=== PATIENT | male | born 1960 | race African-American/Black ===

== ENCOUNTER 2018-08-06 07:32 | Emergency (ER) | payer SELFPAY ==
[2018-08-06 08:40] LABS: Absolute Lymphocytes (CBC) 3.1 K/uL (0.7-4.9); Basophils % 0.9 % (0-1.3); Hematocrit 45.8 % (39.6-49.0); Lymphocytes % 37.4 % (15.3-44.8); MPV 7.9 fL (7.6-11.3); Monocytes % 10.8 % (3.3-12.3); RBC Red Blood Cell Count 5.06 M/uL (4.33-5.43)
[2018-08-06 08:42] LABS: Albumin 3.3 g/dL (3.4-5.0); Bilirubin Direct 0.1 mg/dL (0-0.2); Bilirubin Total 0.6 mg/dL (0.2-1.0); Potassium 4.2 mmol/L (3.5-5.1); Protein, Total 7.3 g/dL (6.4-8.2)
--- NOTE | 2018-08-06 09:26 | RAD REPORT ---
EXAM DESCRIPTION: CTAbdomen Pelvis W Contrast - 08/06/2018 9:07 am CLINICAL HISTORY: Abdominal pain. ABD PAIN COMPARISON: No comparisons TECHNIQUE: Biphasic CT imaging of the abdomen and pelvis was performed with 100 ml non-ionic IV cont rast. All CT scans are performed using dose optimization technique as appropriate and may include automated exposure control or mA/KV adjustment according to patient size. FINDINGS: The lung bases are clear. The liver, spleen, pancreas, adrenal glands and left kidney are within normal limits. 21 mm right daron al cyst is present. No bowel obstruction, free air, free fluid or abscess. Small fat containing umbilical hernia present. The appendix is normal. No evidence of significant lymphadenopathy. Prostate gland is mildly promin ent. Lower lumbar degenerative changes are present. IMPRESSION: No acute intra-abdominal or pelvic finding. Small fat containing umbilical hernia.
--- NOTE | 2018-08-06 10:16 | ER ---
Nurse's Notes [facility] Name: Wolfgang Ross Age: 57 yrs Sex: Male : 1960 Arrival Date: 08/06/2018 Time: 07:36 Bed 14 Private MD: Diagnosis: Abdominal and pelvic pain Presentation: 08/06 07:49 Presenting complaint: Patient states: I have a hernia and a knot on my side and it ls4 flares up at night. Transition of care: patient was not received from another setting of care. Onset of symptoms is unknown. Risk Assessment: Do you want to hurt yourself or someone else? Patient reports no desire to harm self or others. Initial Sepsis Screen: Does the patient meet any 2 criteria? No. Patient's initial sepsis screen is negative. Does the patient have a suspected source of infection? No. Patient's initial sepsis screen is negative. Care prior to arrival: None. 07:49 Method Of Arrival: Ambulatory ls4 07:49 Acuity: BREANNA 4 ls4 Triage Assessment: 07:52 General: Appears in no apparent distress. Behavior is calm, cooperative. Pain: ls4 Complains of pain in suprapubic area, right lower quadrant and left lower quadrant Pain does not radiate. Pain currently is 7 out of 10 on a pain scale. GI: Abdomen is non-distended, Bowel sounds present X 4 quads. Abd is soft and non tender. : No deficits noted. Derm: No deficits noted. Musculoskeletal: Circulation, motion, and sensation intact. Capillary refill < 3 seconds, Range of motion: intact in all extremities, Swelling absent. Historical: - Allergies: 10:28 No Known Allergies; ls4 - Home Meds: 07:52 None [Active]; ls4 - PMHx: 07:52 None; ls4 - PSHx: 07:52 None; ls4 - Immunization history:: Adult Immunizations unknown, Last tetanus immunization: unknown. - Social history:: Smoking status: Patient uses tobacco products, smokes one pack cigarettes per day. Patient uses alcohol, on a daily basis. street drugs, marijuana. - Ebola Screening: : Patient negative for fever greater than or equal to 101.5 degrees Fahrenheit, and additional compatible Ebola Virus Disease symptoms Patient denies exposure to infectious person Patient denies travel to an Ebola-affected area in the 21 days before illness onset No symptoms or risks identified at this time. Screenin:55 Abuse screen: Denies threats or abuse. Denies injuries from another. Nutritional ls4 screening: No deficits noted. Tuberculosis screening: No symptoms or risk factors identified. Fall Risk None identified. Assessment: 07:55 Reassessment: see triage assessment . ls4 Vital Signs: 07:52 BP 126 / 98; Pulse 89; Resp 14; Temp 98.2(O); Pulse Ox 100% on R/A; Weight 84.82 kg; ls4 Height 5 ft. 11 in. (180.34 cm); Pain 7/10; 09:00 BP 124 / 78; Pulse 82; Resp 14; Pulse Ox 99% on R/A; Pain 7/10; ls4 10:00 BP 126 / 98; Pulse 67; Resp 16; Temp 98.4(O); Pulse Ox 99% on R/A; Pain 6/10; ls4 07:52 Body Mass Index 26.08 (84.82 kg, 180.34 cm) ls4 ED Course: 07:36 Patient arrived in ED. as 07:46 Mayco Carroll MD is Attending Physician. kdr 07:49 Kitty Coy, RN is Primary Nurse. ls4 07:50 Triage completed. ls4 07:52 Arm band placed on left wrist. ls4 07:55 Patient has correct armband on for positive identification. Bed in low position. Call ls4 light in reach. Side rails up X 1. Pulse ox on. NIBP on. Verbal reassurance given. 07:55 No provider procedures requiring assistance completed. ls4 09:08 CT Abd/Pelvis - IV Contrast Only In Process Unspecified. EDMS 10:39 IV discontinued, intact, bleeding controlled, No redness/swelling at site. Pressure ls4 dressing applied. Administered Medications: No medications were administered Outcome: 10:16 Discharge ordered by . kdr 10:39 Discharged to home ambulatory. ls4 10:39 Condition: good 10:39 Discharge instructions given to patient, Instructed on discharge instructions, follow up and referral plans. safety practices, Demonstrated understanding of instructions, follow-up care, medications, Prescriptions given X 2. 10:39 Patient left the ED. ls4 Signatures: Dispatcher [employer] EDMS Mayco Carroll MD MD kdr Martinez, Amelia as Stewart, Lisa, RN RN ls4 Corrections: (The following items were deleted from the chart) 10:29 07:52 BP 126 / 98; Pulse 89bpm; Resp 14bpm; Pulse Ox 100% RA; 84.82 kg; Height 5 ft. 11 ls4 in.; BMI: 26.0; Pain 7/10; ls4
--- NOTE | 2018-08-06 10:17 | EDPHYS ---
Physician Documentation [facility] Name: Wolfgang Ross Age: 57 yrs Sex: Male : 1960 Arrival Date: 08/06/2018 Time: 07:36 Bed 14 Private MD: ED Physician Mayco Carroll HPI: 08/06 08:03 This 57 yrs old Black Male presents to ER via Ambulatory with complaints of Abdominal kdr Pain. 08:03 The patient presents with abdominal pain in the lower abdomen, Right flank. Onset: The kdr symptoms/episode began/occurred gradually. The symptoms do not radiate. Associated signs and symptoms: none. Associated signs and symptoms: Pertinent positives: Difficult to initiate urine. The symptoms are described as achy. Severity of pain: At its worst the pain was mild moderate just prior to arrival, in the emergency department the pain has improved mildly. The patient has not experienced similar symptoms in the past. The patient has not recently seen a physician. Historical: - Allergies: 10:28 No Known Allergies; ls4 - Home Meds: 07:52 None [Active]; ls4 - PMHx: 07:52 None; ls4 - PSHx: 07:52 None; ls4 - Immunization history:: Adult Immunizations unknown, Last tetanus immunization: unknown. - Social history:: Smoking status: Patient uses tobacco products, smokes one pack cigarettes per day. Patient uses alcohol, on a daily basis. street drugs, marijuana. - Ebola Screening: : Patient negative for fever greater than or equal to 101.5 degrees Fahrenheit, and additional compatible Ebola Virus Disease symptoms Patient denies exposure to infectious person Patient denies travel to an Ebola-affected area in the 21 days before illness onset No symptoms or risks identified at this time. ROS: 08:03 Constitutional: Negative for fever, chills, and weight loss, Eyes: Negative for injury, kdr pain, redness, and discharge, ENT: Negative for injury, pain, and discharge, Neck: Negative for injury, pain, and swelling, Cardiovascular: Negative for chest pain, palpitations, and edema, Respiratory: Negative for shortness of breath, cough, wheezing, and pleuritic chest pain, Back: Negative for injury and pain, MS/Extremity: Negative for injury and deformity, Skin: Negative for injury, rash, and discoloration, Neuro: Negative for headache, weakness, numbness, tingling, and seizure activity. 08:03 Abdomen/GI: Positive for abdominal pain, Negative for nausea, vomiting, and diarrhea, black/tarry stool, rectal pain, rectal bleeding. 08:03 : Positive for Feels like his scrotum. Exam: 08:03 Constitutional: This is a well developed, well nourished patient who is awake, alert, kdr and in no acute distress. Head/Face: Normocephalic, atraumatic. Eyes: Pupils equal round and reactive to light, extra-ocular motions intact. Lids and lashes normal. Conjunctiva and sclera are non-icteric and not injected. Cornea within normal limits. Periorbital areas with no swelling, redness, or edema. Neck: Trachea midline, no thyromegaly or masses palpated, and no cervical lymphadenopathy. Supple, full range of motion without nuchal rigidity, or vertebral point tenderness. No Meningismus. Chest/axilla: Normal chest wall appearance and motion. Nontender with no deformity. No lesions are appreciated. Cardiovascular: Regular rate and rhythm with a normal S1 and S2. No gallops, murmurs, or rubs. Normal PMI, no JVD. No pulse deficits. Respiratory: Lungs have equal breath sounds bilaterally, clear to auscultation and percussion. No rales, rhonchi or wheezes noted. No increased work of breathing, no retractions or nasal flaring. Back: No spinal tenderness. No costovertebral tenderness. Full range of motion. Skin: Warm, dry with normal turgor. Normal color with no rashes, no lesions, and no evidence of cellulitis. MS/ Extremity: Pulses equal, no cyanosis. Neurovascular intact. Full, normal range of motion. Neuro: Awake and alert, GCS 15, oriented to person, place, time, and situation. Cranial nerves II-XII grossly intact. Motor strength 5/5 in all extremities. Sensory grossly intact. Cerebellar exam normal. Normal gait. Psych: Awake, alert, with orientation to person, place and time. Behavior, mood, and affect are within normal limits. 08:03 Abdomen/GI: Inspection: abdomen appears normal, Bowel sounds: active, all quadrants, Palpation: Abdomen firm and minimally tender to palpation in the lower quadrants. There is also a large swollen and apparently fluid filled area on the infracostal margin on the right. It is non-painful and otherwise swollen. Vital Signs: 07:52 BP 126 / 98; Pulse 89; Resp 14; Temp 98.2(O); Pulse Ox 100% on R/A; Weight 84.82 kg; ls4 Height 5 ft. 11 in. (180.34 cm); Pain 7/10; 09:00 BP 124 / 78; Pulse 82; Resp 14; Pulse Ox 99% on R/A; Pain 7/10; ls4 10:00 BP 126 / 98; Pulse 67; Resp 16; Temp 98.4(O); Pulse Ox 99% on R/A; Pain 6/10; ls4 07:52 Body Mass Index 26.08 (84.82 kg, 180.34 cm) ls4 MDM: 10:16 Patient medically screened. kdr 10:23 Data reviewed: vital signs, nurses notes, lab test result(s). Counseling: I had a kdr detailed discussion with the patient and/or guardian regarding: the historical points, exam findings, and any diagnostic results supporting the discharge/admit diagnosis, lab results, radiology results. Special discussion: Based on the patient's Hx, exam, and Dx evaluation, there is no indication for emergent surgery or inpatient Tx. It is understood by the patient/guardian that if the Sx's persist or worsen they need to return immediately for re-evaluation. I discussed with the patient/guardian in detail that at this point there is no indication for admission to the hospital. It is understood, however, that if the symptoms persist or worsen the patient needs to return immediately for re-evaluation. 08/06 07:55 Order name: Basic Metabolic Panel; Complete Time: : [facility] 08/06 07:55 Order name: CBC with Diff; Complete Time: : [facility] 08/06 07:55 Order name: Creatinine for Radiology; Complete Time: : [facility] 08/06 07:55 Order name: Hepatic Function; Complete Time: : [facility] 08/06 07:55 Order name: Lipase; Complete Time: : [facility] 08/06 08:01 Order name: CT Abd/Pelvis - IV Contrast Only; Complete Time: : [facility] 08/06 07:55 Order name: IV Saline Lock; Complete Time: 08:57 [facility] 08/06 07:55 Order name: Labs collected and sent; Complete Time: 08:57 kdr Administered Medications: No medications were administered Disposition: 08/06/18 10:16 Discharged to Home. Impression: Abdominal and pelvic pain. - Condition is Stable. - Discharge Instructions: Abdominal Pain, Adult. - Prescriptions for Zofran 4 mg Oral Tablet - take 1 tablet by ORAL route every 12 hours As needed; 6 tablet. Tramadol 50 mg Oral Tablet - take 1 tablet by ORAL route every 8 hours as needed; 12 tablet. - Medication Reconciliation Form, Thank You Letter, Work release form form. - Follow up: Private Physician; When: 2 - 3 days; Reason: If symptoms return, Further diagnostic work-up, Recheck today's complaints, Continuance of care, Re-evaluation by your physician. - Problem is new. - Symptoms have improved. Signatures: Dispatcher [employer] EDMS Mayco Carroll MD MD kdr Kitty Coy RN RN ls4 Corrections: (The following items were deleted from the chart) 10:39 10:16 08/06/2018 10:16 Discharged to Home. Impression: Abdominal and pelvic pain. ls4 Condition is Stable. Forms are Medication Reconciliation Form, Thank You Letter, Antibiotic Education, Prescription Opioid Use. Follow up: Private Physician; When: 2 - 3 days; Reason: If symptoms return, Further diagnostic work-up, Recheck today's complaints, Continuance of care, Re-evaluation by your physician. Problem is new. Symptoms have improved. kdr
== END 2018-08-06 10:39 | disposition home or self-care (01) ==
LOC: ER 07:32
DX: R10.2 Pelvic and perineal pain (principal); F17.210 Nicotine dependence, cigarettes, uncomplicated
CPT/HCPCS: 36415; 74177; 80048; 80076; 83690; 85025; 99283; Q9967

== ENCOUNTER 2018-11-14 03:18 | Emergency (ER) | payer OTHER ==
[2018-11-14] MEDS ORDERED: NA CHLORIDE 0.9% 1,000 ML ONE (04:26)
[2018-11-14 04:41] LABS: Absolute Lymphocytes (CBC) 3.8 K/uL (0.7-4.9); Basophils % 1.1 % (0-1.3); Hematocrit 40.5 % (39.6-49.0); Lymphocytes % 39.3 % (15.3-44.8); MPV 8.2 fL (7.6-11.3)
[2018-11-14 04:49] LABS: ALT/SGPT 17 U/L (12-78); AST/SGOT 10 U/L (15-37); Albumin 3.3 g/dL (3.4-5.0); Alkaline Phosphatase 49 U/L (45-117); BUN Blood Urea Nitrogen 7 mg/dL (7-18); Bicarbonate 23 mmol/L (21-32); Bilirubin Direct 0.2 mg/dL (0-0.2); Bilirubin Total 0.5 mg/dL (0.2-1.0); Glucose Level 109 mg/dL (74-106); Lipase 51 U/L (73-393); Potassium 3.2 mmol/L (3.5-5.1); Protein, Total 7.2 g/dL (6.4-8.2); Sodium Level 139 mmol/L (136-145)
--- NOTE | 2018-11-14 04:57 | EDPHYS ---
Physician Documentation [facility] Name: Wolfgang Ross Age: 58 yrs Sex: Male : 1960 Arrival Date: 11/14/2018 Time: 03:24 Bed 6 Private MD: ED Physician Néstor Contreras HPI: 11/14 04:14 This 58 yrs old Black Male presents to ER via EMS with complaints of Abdominal Problem. eryn 04:14 The patient presents with abdominal pain in the lower abdomen. Onset: The eryn symptoms/episode began/occurred just prior to arrival. The symptoms do not radiate. Associated signs and symptoms: none. Modifying factors: The symptoms are alleviated by antacids, the symptoms are aggravated by nothing. Severity of pain: At its worst the pain was moderate in the emergency department the pain is unchanged. Historical: - Allergies: 03:43 No Known Allergies; aa1 - Home Meds: 03:43 None [Active]; aa1 - PMHx: 03:43 Hernia; aa1 - PSHx: 03:43 None; aa1 - Immunization history:: Flu vaccine is up to date. - Social history:: Smoking status: Patient uses tobacco products, smokes one-half pack cigarettes per day. - Ebola Screening: : No symptoms or risks identified at this time. - Family history:: not pertinent. ROS: 04:14 Constitutional: Negative for fever, chills, and weight loss, Eyes: Negative for injury, eryn pain, redness, and discharge, ENT: Negative for injury, pain, and discharge, Neck: Negative for injury, pain, and swelling, Cardiovascular: Negative for chest pain, palpitations, and edema, Respiratory: Negative for shortness of breath, cough, wheezing, and pleuritic chest pain, Back: Negative for injury and pain, : Negative for injury, bleeding, discharge, and swelling, MS/Extremity: Negative for injury and deformity, Skin: Negative for injury, rash, and discoloration, Neuro: Negative for headache, weakness, numbness, tingling, and seizure, Psych: Negative for depression, anxiety, suicide ideation, homicidal ideation, and hallucinations, Allergy/Immunology: Negative for hives, rash, and allergies, Endocrine: Negative for neck swelling, polydipsia, polyuria, polyphagia, and marked weight changes, Hematologic/Lymphatic: Negative for swollen nodes, abnormal bleeding, and unusual bruising. 04:14 Abdomen/GI: Positive for abdominal pain, of the right lower quadrant and left lower quadrant. Exam: 04:14 Constitutional: This is a well developed, well nourished patient who is awake, alert, eryn and in no acute distress. Head/Face: Normocephalic, atraumatic. Eyes: Pupils equal round and reactive to light, extra-ocular motions intact. Lids and lashes normal. Conjunctiva and sclera are non-icteric and not injected. Cornea within normal limits. Periorbital areas with no swelling, redness, or edema. ENT: Nares patent. No nasal discharge, no septal abnormalities noted. Tympanic membranes are normal and external auditory canals are clear. Oropharynx with no redness, swelling, or masses, exudates, or evidence of obstruction, uvula midline. Mucous membranes moist. Neck: Trachea midline, no thyromegaly or masses palpated, and no cervical lymphadenopathy. Supple, full range of motion without nuchal rigidity, or vertebral point tenderness. No Meningismus. Chest/axilla: Normal chest wall appearance and motion. Nontender with no deformity. No lesions are appreciated. Cardiovascular: Regular rate and rhythm with a normal S1 and S2. No gallops, murmurs, or rubs. Normal PMI, no JVD. No pulse deficits. Respiratory: Lungs have equal breath sounds bilaterally, clear to auscultation and percussion. No rales, rhonchi or wheezes noted. No increased work of breathing, no retractions or nasal flaring. Abdomen/GI: Soft, non-tender, with normal bowel sounds. No distension or tympany. No guarding or rebound. No evidence of tenderness throughout. Back: No spinal tenderness. No costovertebral tenderness. Full range of motion. Male : Normal genitalia with no discharge or lesions. Skin: Warm, dry with normal turgor. Normal color with no rashes, no lesions, and no evidence of cellulitis. MS/ Extremity: Pulses equal, no cyanosis. Neurovascular intact. Full, normal range of motion. Neuro: Awake and alert, GCS 15, oriented to person, place, time, and situation. Cranial nerves II-XII grossly intact. Motor strength 5/5 in all extremities. Sensory grossly intact. Cerebellar exam normal. Normal gait. Psych: Awake, alert, with orientation to person, place and time. Behavior, mood, and affect are within normal limits. Vital Signs: 03:23 BP 141 / 103; Pulse 94; Resp 18; Temp 98.0; Pulse Ox 99% on R/A; Weight 87.54 kg (R); aa1 Height 5 ft. 11 in. (180.34 cm); Pain 8/10; 04:28 BP 116 / 84; Pulse 80; Resp 16; Pulse Ox 99% on R/A; Pain 6/10; ch 05:19 BP 132 / 88; Pulse 79; Resp 14; Temp 98.8; Pulse Ox 99% on R/A; Pain 7/10; ch 06:29 BP 119 / 76; Pulse 54; Resp 14; Pulse Ox 97% on R/A; Pain 6/10; ch 03:23 Body Mass Index 26.92 (87.54 kg, 180.34 cm) aa1 MDM: 03:57 Patient medically screened. [facility] 04:16 Data reviewed: vital signs, nurses notes, lab test result(s), radiologic studies, plain eryn films. 11/14 04:13 Order name: Basic Metabolic Panel [facility] 11/14 04:13 Order name: CBC with Diff; Complete Time: 04:54 [facility] 11/14 04:13 Order name: Creatinine for Radiology; Complete Time: 04:54 [facility] 11/14 04:13 Order name: Hepatic Function; Complete Time: 04:54 [facility] 11/14 04:13 Order name: Lipase; Complete Time: 04:54 [facility] 11/14 04:13 Order name: Urine Culture [facility] 11/14 04:13 Order name: IV Saline Lock; Complete Time: 04:28 [facility] 11/14 04:13 Order name: Labs collected and sent; Complete Time: 04:28 [facility] 11/14 04:13 Order name: Urine Dipstick-Ancillary (obtain specimen); Complete Time: 04:28 [facility] 11/14 04:14 Order name: Basic Metabolic Panel; Complete Time: 04:54 [facility] 11/14 04:17 Order name: Abdomen 1 View (KUB) XRAY [facility] Administered Medications: 04:27 Drug: NS 0.9% 1000 ml Route: IV; Rate: 1 bolus; Site: right forearm; ch 05:21 Follow up: IV Status: Completed infusion; IV Intake: 1000ml 05:05 Drug: Potassium Effervescent Tablet 25 mEq Route: PO; ea 05:21 Follow up: Response: No adverse reaction Disposition: 11/14/18 04:57 Discharged to Home. Impression: Abdominal tenderness, Hypokalemia. - Condition is Stable. - Discharge Instructions: Abdominal Pain, Adult, Potassium Content of Foods, Abdominal Pain, Adult, [id number], Hypokalemia. - Prescriptions for Bentyl 20 mg Oral Tablet - take 1 tablet by ORAL route every 6 hours As needed; 20 tablet. Pepcid 20 mg Oral Tablet - take 1 tablet by ORAL route every 12 hours for 10 days; 20 tablet. - Medication Reconciliation Form, Thank You Letter, Antibiotic Education, Prescription Opioid Use form. - Follow up: Private Physician; When: 2 - 3 days; Reason: Recheck today's complaints, Continuance of care, Re-evaluation by your physician. Follow up: Haile Fontanez; When: 2 - 3 days; Reason: Recheck today's complaints, Re-evaluation by your physician. - Problem is new. - Symptoms have improved. Signatures: Dispatcher [employer] EDMS Sherin Jorge RN RN Shannon Wells RN RN aa1 Néstor Contreras MD MD cha Antunez, Elena, RN RN shayy Corrections: (The following items were deleted from the chart) 06:57 04:57 11/14/2018 04:57 Discharged to Home. Impression: Abdominal tenderness; ea Hypokalemia. Condition is Stable. Discharge Instructions: Abdominal Pain, Adult, Abdominal Pain, Adult, [id number]. Prescriptions for Bentyl 20 mg Oral Tablet - take 1 tablet by ORAL route every 6 hours As needed; 20 tablet, Pepcid 20 mg Oral Tablet - take 1 tablet by ORAL route every 12 hours for 10 days; 20 tablet. and Forms are Medication Reconciliation Form, Thank You Letter, Antibiotic Education, Prescription Opioid Use. Follow up: Private Physician; When: 2 - 3 days; Reason: Recheck today's complaints, Continuance of care, Re-evaluation by your physician. Follow up: Haile Fontanez; When: 2 - 3 days; Reason: Recheck today's complaints, Re-evaluation by your physician. Problem is new. Symptoms have improved. eryn
--- NOTE | 2018-11-14 04:57 | ER ---
Nurse's Notes [facility] Name: Wolfgang Ross Age: 58 yrs Sex: Male : 1960 Arrival Date: 11/14/2018 Time: 03:24 Bed 6 Private MD: Diagnosis: Abdominal tenderness;Hypokalemia Presentation: 11/14 03:23 Presenting complaint: Patient states: he was diagnosed with a hernia here awhile back aa1 and was told that if it became worse that he might need to come back and have surgery and reports over the past couple days his pain has been getting worse so he wanted to have it rechecked. Transition of care: patient was not received from another setting of care. Onset of symptoms was November 12, 2018. Risk Assessment: Do you want to hurt yourself or someone else? Patient reports no desire to harm self or others. Initial Sepsis Screen: Does the patient meet any 2 criteria? No. Patient's initial sepsis screen is negative. Does the patient have a suspected source of infection? No. Patient's initial sepsis screen is negative. Care prior to arrival: None. 03:23 Method Of Arrival: EMS: [facility] aa1 03:23 Acuity: BREANNA 3 aa1 Triage Assessment: 03:23 General: Appears. aa1 Historical: - Allergies: 03:43 No Known Allergies; aa1 - Home Meds: 03:43 None [Active]; aa1 - PMHx: 03:43 Hernia; aa1 - PSHx: 03:43 None; aa1 - Immunization history:: Flu vaccine is up to date. - Social history:: Smoking status: Patient uses tobacco products, smokes one-half pack cigarettes per day. - Ebola Screening: : No symptoms or risks identified at this time. - Family history:: not pertinent. Screenin:33 Abuse screen: Denies threats or abuse. Denies injuries from another. Nutritional aa1 screening: No deficits noted. Tuberculosis screening: No symptoms or risk factors identified. Fall Risk None identified. Assessment: 03:33 General: Appears in no apparent distress. comfortable, Behavior is calm, cooperative, aa1 appropriate for age. Pain: Complains of pain in suprapubic area and pelvis Pain currently is 8 out of 10 on a pain scale. Pain began 2-3 days ago. Neuro: Level of Consciousness is awake, alert, obeys commands, Oriented to person, place, time, situation, Moves all extremities. Full function Gait is steady, Speech is normal. Cardiovascular: Heart tones S1 S2 present. Respiratory: Airway is patent Respiratory effort is even, unlabored, Respiratory pattern is regular, symmetrical. GI: Abdomen is non-distended, Bowel sounds present X 4 quads. Abd is soft X 4 quads Reports lower abdominal pain. : Denies inability to void, pain with urination. : Reports pain in bilateral testicle. EENT: No signs and/or symptoms were reported regarding the EENT system. Derm: Skin is intact, is healthy with good turgor, Skin is pink, warm \T\ dry. Musculoskeletal: Circulation, motion, and sensation intact. Capillary refill < 3 seconds. 04:20 Reassessment: Patient appears in no apparent distress at this time. No changes from ch previously documented assessment. 05:19 Reassessment: Patient appears in no apparent distress at this time. PHYSICIAN STATES PT ch IS NOT REALLY UP FOR DISCHARGE, AWAITING KUB RESULTS. 06:29 Reassessment: Patient appears in no apparent distress at this time. STILL AWAITING KUB ch RESULT PRIOR TO DISCHARGE. DR KEYS STATES DO NOT DISCHARGE THE PT YET. 06:54 Reassessment: Patient and/or family updated on plan of care and expected duration. Pain ea level reassessed. Patient is alert, oriented x 3, equal unlabored respirations, skin warm/dry/pink. Discharge instruction given to patient, verbalized the understanding of instruction. Pt left ambulatory tolerating well. Vital Signs: 03:23 BP 141 / 103; Pulse 94; Resp 18; Temp 98.0; Pulse Ox 99% on R/A; Weight 87.54 kg (R); aa1 Height 5 ft. 11 in. (180.34 cm); Pain 8/10; 04:28 BP 116 / 84; Pulse 80; Resp 16; Pulse Ox 99% on R/A; Pain 6/10; ch 05:19 BP 132 / 88; Pulse 79; Resp 14; Temp 98.8; Pulse Ox 99% on R/A; Pain 7/10; ch 06:29 BP 119 / 76; Pulse 54; Resp 14; Pulse Ox 97% on R/A; Pain 6/10; ch 03:23 Body Mass Index 26.92 (87.54 kg, 180.34 cm) aa1 ED Course: 03:23 Arm band placed on right wrist. Patient placed in an exam room, on a stretcher. aa1 03:24 Patient arrived in ED. aa1 03:33 Patient has correct armband on for positive identification. Placed in gown. Bed in low aa1 position. Call light in reach. Pulse ox on. NIBP on. 03:41 Triage completed. aa1 03:57 Néstor Keys MD is Attending Physician. eryn 04:20 Sherin Jorge, EN is Primary Nurse. ch 04:28 Basic Metabolic Panel Sent. ch 04:29 Initial lab(s) drawn, by pr, sent to lab. Inserted saline lock: 20 gauge in right em1 forearm, using aseptic technique. Blood collected. 04:55 Abdomen 1 View (KUB) XRAY In Process Unspecified. EDMS 04:56 Haile Fontanez MD is Referral Physician. eryn 05:19 No apparent distress. Resting quietly. ch 05:19 Door closed. Noise minimized. Lights dimmed. Warm blanket given. ch 05:19 No provider procedures requiring assistance completed. ch 06:56 IV discontinued, intact, bleeding controlled, No redness/swelling at site. Pressure ea dressing applied. Administered Medications: 04:27 Drug: NS 0.9% 1000 ml Route: IV; Rate: 1 bolus; Site: right forearm; ch 05:21 Follow up: IV Status: Completed infusion; IV Intake: 1000ml ch 05:05 Drug: Potassium Effervescent Tablet 25 mEq Route: PO; ea 05:21 Follow up: Response: No adverse reaction ch Intake: 05:21 IV: 1000ml; Total: 1000ml. Outcome: 04:57 Discharge ordered by . eryn 06:55 Discharged to home ambulatory. ea 06:55 Condition: stable 06:55 Discharge instructions given to patient, Instructed on discharge instructions, follow up and referral plans. medication usage, Demonstrated understanding of instructions, follow-up care, medications, Prescriptions given X 2. 06:57 Patient left the ED. ea Signatures: Dispatcher [employer] EDUT Sherin Jorge, EN GAT[place] Shannon Wells RN RN aa Néstor Keys MD MD cha Martinez, Eric [facility] Jocelyn Pemberton RN RN ea
[2018-11-14] MEDS ORDERED: POTASSIUM 25 MEQ EFFERV TAB ONE (05:05)
[2018-11-14 07:15] VITALS: TEMP 98.8
[2018-11-14 07:19] VITALS: BP 119/76; O2SAT 97
--- NOTE | 2018-11-14 10:31 | RAD REPORT ---
EXAM DESCRIPTION: RAD - Abdomen 1 View (KUB) - 11/14/2018 4:54 am CLINICAL HISTORY: The patient is 58 years old and is Male; ABD PAIN TECHNIQUE: Frontal supine view of the abdomen/pelvis. COMPARISON: No relevant prior studies available. FINDINGS: GASTROINTESTINAL TRACT: Minimal stool is noted within the right colon. No dilated loops of bowel are seen. The bowel gas pattern is nonobstructive and nonspecific. No abnormal calcification s or soft tissue masses are noted. BONES/JOINTS: There are degenerative changes of the bones. IMPRESSION: Nonobstructive, nonspecific bowel gas pattern. Electronically signed by: Myrna Reeves MD 11/14/2018 5:57 AM CDT Due to temporary technical issues with the PACS/Fluency reporting system, reports are being signed by the in house radiologist as a courtesy to ensure prompt reporting. The interpreting radiologist is f ully responsible for the content of the report.
== END 2018-11-14 06:57 | disposition home or self-care (01) ==
LOC: ER 03:18
DX: E87.6 Hypokalemia (principal); R10.819 Abdominal tenderness, unspecified site; F17.210 Nicotine dependence, cigarettes, uncomplicated
CPT/HCPCS: 87088; 85025; 87086; 80048; 36415; 80076; 83690; 74018; 96360; 99284; J7030

== ENCOUNTER 2019-12-02 19:45 | Emergency (ER) | payer OTHER ==
--- OUTSIDE RECORDS SUMMARY | 2019-12-02 19:48 | XMS REPORT | Continuity of Care Document ---
:1960 Author Organization [facility] t Address [address] [place] [address] Care Team Providers Name Role Phone Unavailable Unavailable Unavailable Problems This patient has no known problems. Allergies, Adverse Reactions, Alerts This patient has no known allergies or adverse reactions. Medications This patient has no known medications. Procedures This patient has no known procedures. Results This patient has no known results.
[2019-12-02] MEDS ORDERED: NA CHLORIDE 0.9% 1,000 ML ONE ×2 (20:24→20:56)
[2019-12-02 20:59] LABS: Absolute Lymphocytes (CBC) 1.7 K/uL (0.7-4.9); Basophils % 0.9 % (0-1.3); Hematocrit 35.9 % (39.6-49.0); Lymphocytes % 30.7 % (15.3-44.8); MPV 7.8 fL (7.6-11.3); RBC Red Blood Cell Count 4.07 M/uL (4.33-5.43)
--- NOTE | 2019-12-02 21:01 | RAD REPORT ---
EXAM DESCRIPTION: Nasra Single View12/02/2019 8:54 pm CLINICAL HISTORY: Seizure COMPARISON: none FINDINGS: The lungs appear clear of acute infiltrate. The heart is normal size IMPRESSION: No acute abnormalities displayed
[2019-12-02 21:04] LABS: Protime INR 0.96
[2019-12-02 21:19] LABS: ALT/SGPT 21 U/L (12-78); AST/SGOT 14 U/L (15-37); Albumin 2.8 g/dL (3.4-5.0); Alkaline Phosphatase 54 U/L (45-117); BUN Blood Urea Nitrogen 13 mg/dL (7-18); Bicarbonate 25 mmol/L (21-32); Bilirubin Direct 0.1 mg/dL (0-0.2); Bilirubin Total 0.3 mg/dL (0.2-1.0); Glucose Level 116 mg/dL (74-106); Magnesium 1.9 mg/dL (1.8-2.4); NT PRO-BNP 56 pg/mL (<125); Potassium 3.7 mmol/L (3.5-5.1); Protein, Total 6.6 g/dL (6.4-8.2); Sodium Level 142 mmol/L (136-145); Troponin (Emerg Dept Use Only) < 0.02 ng/mL (0.0-0.045)
--- NOTE | 2019-12-02 21:32 | RAD REPORT ---
EXAM DESCRIPTION: CT - Head C Spine Mpr Wo Con - 12/02/2019 9:01 pm CLINICAL HISTORY: Seizure with neck pain COMPARISON: None. TECHNIQUE: Computed axial tomography of the head and cervical spine was obtained. Sagittal and coronal reconstruction was performed. All CT scans are performed using dose optimization technique as appropriate and may include automated exposure control or mA/KV adjustment according to patient size. FINDINGS: An intracranial bleed is not seen. The ventricles are normal in caliber. An extra-axial fl uid collection is not noted.Fluid within the visualized sinuses and mastoids is not seen A cervical fracture is not visualized. No dislocation is noted. IMPRESSION: No acute intracranial abnormality is seen. A cervical fracture is not visualized. If the patient continues to have symptoms to suggest intracra nial /spinal cord pathology then MRI would be recommended
[2019-12-02 23:32] LABS: Barbiturates NEGATIVE (NEGATIVE); Benzodiazepines NEGATIVE (NEGATIVE); Cocaine NEGATIVE (NEGATIVE); METHAMPHETAM POSITIVE (NEGATIVE); Methadone NEGATIVE (NEGATIVE); Opiates NEGATIVE (NEGATIVE); Phencyclidine NEGATIVE (NEGATIVE); THC Cannibis POSITIVE (NEGATIVE)
[2019-12-02 23:51] LABS: Urine Blood NEGATIVE (NEG); Urine Glucose NEGATIVE (NEG); Urine Protein 1+ (NEG); Urine Specific Gravity >1.030 (1.005-1.030); Urine pH 5.5 (5.0-7.0)
--- NOTE | 2019-12-03 00:42 | EDPHYS ---
Physician Documentation [facility] Name: Wolfgang Ross Age: 59 yrs Sex: Male : 1960 Arrival Date: 12/02/2019 Time: 19:46 Bed 17 Private MD: ED Physician German Akbar HPI: 12/01 20:37 This 59 yrs old Black Male presents to ER via EMS with complaints of Altered Mental mh7 Status. 20:37 The patient presents with decreased mental status, seizure activity. Onset: The mh7 symptoms/episode began/occurred today. Possible causes: unknown. Associated signs and symptoms: Pertinent positives: confusion, seizure, Pertinent negatives: abdominal pain, agitation, ataxia, blurred vision, chest pain, combativeness, diaphoresis, diarrhea, dizziness, headache, lightheadedness, nausea, numbness, palpitations, shortness of breath, tingling, vertigo, vomiting, weakness. Current symptoms: In the emergency department the patient's symptoms have improved, moderately, is less confused. Patient's baseline: Neuro: alert and fully oriented, Motor: no deficits, Ambulation: walks without assistance, Speech: normal. Per EMS patient was sitting on porch and neighbor witnessed him have a brief seizure. Patient does not remember events but denies any complaints. He admits to drinking a six pack of beer today.. Historical: - Allergies: 19:59 No Known Allergies; jb4 - Home Meds: 19:59 None [Active]; jb4 - PMHx: 19:59 Hernia; jb4 - PSHx: 19:59 None; jb4 - Immunization history:: Adult Immunizations up to date. - Social history:: Smoking status: Patient denies any tobacco usage or history of. Patient uses street drugs, marijuana, Patient/guardian denies using alcohol. ROS: 20:37 Constitutional: Negative for fever, chills, and weight loss, Eyes: Negative for injury, mh7 pain, redness, and discharge, ENT: Negative for injury, pain, and discharge, Neck: Negative for injury, pain, and swelling, Cardiovascular: Negative for chest pain, palpitations, and edema, Respiratory: Negative for shortness of breath, cough, wheezing, and pleuritic chest pain, Abdomen/GI: Negative for abdominal pain, nausea, vomiting, diarrhea, and constipation, Back: Negative for injury and pain, : Negative for injury, bleeding, discharge, and swelling, MS/Extremity: Negative for injury and deformity, Skin: Negative for injury, rash, and discoloration, Psych: Negative for depression, anxiety, suicide ideation, homicidal ideation, and hallucinations, Allergy/Immunology: Negative for hives, rash, and allergies, Endocrine: Negative for neck swelling, polydipsia, polyuria, polyphagia, and marked weight changes, Hematologic/Lymphatic: Negative for swollen nodes, abnormal bleeding, and unusual bruising. Exam: 20:37 Constitutional: This is a well developed, well nourished patient who is awake, alert, mh7 and in no acute distress. Head/Face: Normocephalic, atraumatic. Eyes: Pupils equal round and reactive to light, extra-ocular motions intact. Lids and lashes normal. Conjunctiva and sclera are non-icteric and not injected. Cornea within normal limits. Periorbital areas with no swelling, redness, or edema. Neck: Trachea midline, no thyromegaly or masses palpated, and no cervical lymphadenopathy. Supple, full range of motion without nuchal rigidity, or vertebral point tenderness. No Meningismus. Chest/axilla: Normal chest wall appearance and motion. Nontender with no deformity. No lesions are appreciated. Cardiovascular: Regular rate and rhythm with a normal S1 and S2. No gallops, murmurs, or rubs. Normal PMI, no JVD. No pulse deficits. Respiratory: Lungs have equal breath sounds bilaterally, clear to auscultation and percussion. No rales, rhonchi or wheezes noted. No increased work of breathing, no retractions or nasal flaring. Abdomen/GI: Soft, non-tender, with normal bowel sounds. No distension or tympany. No guarding or rebound. No evidence of tenderness throughout. Back: No spinal tenderness. No costovertebral tenderness. Full range of motion. Skin: Warm, dry with normal turgor. Normal color with no rashes, no lesions, and no evidence of cellulitis. MS/ Extremity: Pulses equal, no cyanosis. Neurovascular intact. Full, normal range of motion. 20:37 Psych: Awake, alert, with orientation to person, place and time. Behavior, mood, and affect are within normal limits. 20:37 Constitutional: The patient appears 20:37 Neuro: Orientation: is normal, Mentation: is normal, Memory: is normal, Cranial nerves: grossly normal, Cerebellar function: is grossly normal, Motor: is normal, Sensation: is normal, Gait: not tested. Deep tendon reflexes are normal, Babinski testing is normal, seizure activity, is not displayed by the patient, Abnormal movements: there are no abnormal movements. Vital Signs: 19:53 BP 83 / 56; Pulse 82; Resp 16; Temp 98.4(A); Pulse Ox 93% on R/A; Weight 90.72 kg (R); jb4 Height 5 ft. 11 in. (180.34 cm) (R); Pain 0/10; 20:00 BP 63 / 53; Pulse 69; Resp 16; Temp 97.6; Pulse Ox 96% on R/A; Pain 0/10; fu 20:15 BP 77 / 56; Pulse 72; Resp 16; Pulse Ox 97% on R/A; Pain 0/10; fu 20:30 BP 102 / 73; Pulse 72; Resp 16; Pulse Ox 99% on NC; Pain 0/10; fu 21:30 BP 134 / 84; Pulse 64; Resp 21; Pulse Ox 100% on R/A; Pain 0/10; fu 22:00 BP 121 / 84; Pulse 64; Resp 17; Pulse Ox 100% on R/A; Pain 0/10; fu 23:00 BP 129 / 88; Pulse 65; Resp 15; Pulse Ox 100% on R/A; Pain 0/10; fu 12/02 00:00 BP 126 / 82; Pulse 60; Resp 12; Pulse Ox 100% on R/A; Pain 0/10; fu 12/01 19:53 Body Mass Index 27.89 (90.72 kg, 180.34 cm) jb4 MDM: 12/01 20:21 Patient medically screened. 7 12/02 00:39 Differential Diagnosis: CVA, electrolyte abnormality, alcohol intoxication, 7 hypoglycemia, intracranial bleed, overdose, pneumonia, seizure, TIA, volume depletion. Data reviewed: vital signs, nurses notes, EMS record, lab test result(s), cardiac enzymes, CBC, drug level(s), electrolytes, urinalysis, urine drug screen, EKG, radiologic studies, CT scan, plain films. Data interpreted: Pulse oximetry: on room air is 96 %. Interpretation: normal. Counseling: I had a detailed discussion with the patient and/or guardian regarding: the historical points, exam findings, and any diagnostic results supporting the discharge/admit diagnosis, lab results, radiology results. Response to treatment: the patient's symptoms have resolved after treatment, the patient's blood pressure is in an acceptable range, mental status has returned to baseline, the patient no longer shows bradycardia, the patient is not short of breath, the patient is not tachycardic, the patient's pain is gone, the patient's temperature has normalized. 12/01 20:18 Order name: Basic Metabolic Panel; Complete Time: 21:48 mh7 12/01 20:18 Order name: CBC with Diff; Complete Time: 21:48 mh7 12/01 20:18 Order name: LFT's; Complete Time: 21:48 7 12/01 20:18 Order name: Magnesium; Complete Time: 21:48 mh7 12/01 20:18 Order name: NT PRO-BNP; Complete Time: 21:48 7 12/01 20:18 Order name: PT-INR; Complete Time: 21:48 7 12/01 20:18 Order name: Troponin (emerg Dept Use Only); Complete Time: 21:48 mh7 12/01 20:18 Order name: UDS; Complete Time: 23:51 mh7 12/01 20:18 Order name: ETOH Level; Complete Time: 21:48 mh7 12/01 20:18 Order name: Acetaminophen; Complete Time: 21:48 mh7 12/01 20:18 Order name: Salicylate; Complete Time: 21:48 7 12/01 20:47 Order name: AMMONIA; Complete Time: 21:48 fu 12/01 22:47 Order name: Urine Dipstick--Ancillary (enter results); Complete Time: 00:09 mw2 12/01 23:22 Order name: Troponin (emerg Dept Use Only); Complete Time: 00:38 fu 12/01 20:18 Order name: XRAY Chest (1 view); Complete Time: 21:48 mh7 12/01 20:18 Order name: EKG; Complete Time: 20:19 mh7 12/01 20:18 Order name: Cardiac monitoring; Complete Time: 20:28 mh7 12/01 20:18 Order name: EKG - Nurse/Tech; Complete Time: 20:28 [facility] 12/01 20:18 Order name: IV Saline Lock; Complete Time: 20:40 [facility] 12/01 20:18 Order name: Labs collected and sent; Complete Time: 20:40 [facility] 12/01 20:18 Order name: O2 Per Protocol; Complete Time: 20:40 7 12/01 20:18 Order name: O2 Sat Monitoring; Complete Time: 20:40 [facility] 12/01 20:18 Order name: Urine Dipstick-Ancillary (obtain specimen); Complete Time: 22:48 [facility] 12/01 20:18 Order name: CT Head C Spine; Complete Time: 21:48 mh7 Administered Medications: 12/01 21:02 Drug: NS 0.9% 1000 ml Route: IV; Rate: 1 bolus; Site: left antecubital; fu 22:45 Follow up: Response: No adverse reaction fu 22:48 Drug: NS 0.9% 1000 ml Route: IV; Rate: 1 bolus; Site: right forearm; fu 12/02 00:00 Follow up: Response: No adverse reaction fu Disposition: 12/03/19 00:41 Discharged to Home. Impression: Syncope and collapse, Methamphetamine Abuse, Marijuana Use. - Condition is Stable. - Discharge Instructions: Cannabis Use Disorder, Stimulant Use Disorder-Methamphetamines, Syncope, [id number]-[id number]. - Medication Reconciliation Form, Thank You Letter, Antibiotic Education, Prescription Opioid Use form. - Follow up: Private Physician; When: 1 - 2 days; Reason: Worsening of condition, Recheck today's complaints, Continuance of care, Re-evaluation by your physician. - Problem is new. - Symptoms have improved. Signatures: Dispatcher [employer] EDTX Anthony Lujan RN RN jb4 Chato Mckeon RN RN fu Holmes, Maurice, MD MD mh7 Corrections: (The following items were deleted from the chart) 00:49 00:41 12/03/2019 00:41 Discharged to Home. Impression: Syncope and collapse; fu Methamphetamine Abuse; Marijuana Use. Condition is Stable. Forms are Medication Reconciliation Form, Thank You Letter, Antibiotic Education, Prescription Opioid Use. Follow up: Private Physician; When: 1 - 2 days; Reason: Worsening of condition, Recheck today's complaints, Continuance of care, Re-evaluation by your physician. Problem is new. Symptoms have improved. mh7
--- NOTE | 2019-12-03 00:42 | ER ---
Nurse's Notes [facility] Name: Wolfgang Ross Age: 59 yrs Sex: Male : 1960 Arrival Date: 12/02/2019 Time: 19:46 Bed 17 Private MD: Diagnosis: Syncope and collapse;Methamphetamine Abuse;Marijuana Use Presentation: 12/01 19:53 Chief complaint: EMS states: PT was sitting on the porch with his neighbor when he jb4 reportedly had a seizure lasting 15 seconds. His initial pressure on scene was 210/120 which then dropped to 180/100 after about 5 minutes. That trend continued en-route to the hospital. Coronavirus screen: Client denies travel out of the [place] in the last 14 days. At this time, the client does not indicate any symptoms associated with coronavirus-19. Ebola Screen: No symptoms or risks identified at this time. Initial Sepsis Screen: Does the patient meet any 2 criteria? No. Patient's initial sepsis screen is negative. Does the patient have a suspected source of infection? No. Patient's initial sepsis screen is negative. Risk Assessment: Do you want to hurt yourself or someone else? Patient reports no desire to harm self or others. Onset of symptoms was December 02, 2019. Transition of care: patient was not received from another setting of care. 19:53 Method Of Arrival: EMS: [facility] 19:53 Acuity: BREANNA 2 jb4 Historical: - Allergies: 19:59 No Known Allergies; jb4 - Home Meds: 19:59 None [Active]; jb4 - PMHx: 19:59 Hernia; jb4 - PSHx: 19:59 None; jb4 - Immunization history:: Adult Immunizations up to date. - Social history:: Smoking status: Patient denies any tobacco usage or history of. Patient uses street drugs, marijuana, Patient/guardian denies using alcohol. Screenin:00 Abuse screen: Denies threats or abuse. Nutritional screening: No deficits noted. fu Tuberculosis screening: No symptoms or risk factors identified. Fall Risk None identified. Assessment: 20:00 General: Appears uncomfortable, Behavior is calm, cooperative, drowsy. Pain: Denies fu pain. Neuro: Level of Consciousness is awake, obeys commands, drowsy but arousable. Oriented to person, place, Radar Operator are equal bilaterally Moves all extremities. Weakness Speech is normal, Facial symmetry appears normal, Intact. Cardiovascular: Denies chest pain, nausea, vomiting, Capillary refill < 3 seconds. Respiratory: Airway is patent Breath sounds are clear bilaterally. GI: No signs and/or symptoms were reported involving the gastrointestinal system. : Reports difficulty with urination. EENT: No signs and/or symptoms were reported regarding the EENT system. Derm: Skin is intact. Musculoskeletal: No signs and/or symptoms reported regarding the musculoskeletal system. 20:05 Reassessment: Dr. Akbar notified regarding patient BP of 63/53, Verbal order to start fu IV NS 1L bolus. 20:30 Reassessment: Patient BP continuously monitored. fu 21:00 Reassessment: Patient appears in no apparent distress at this time. Patient and/or fu family updated on plan of care and expected duration. Pain level reassessed. Patient is alert, oriented x 3, equal unlabored respirations, skin warm/dry/pink. 22:30 Reassessment: Patient appears in no apparent distress at this time. Patient and/or fu family updated on plan of care and expected duration. Pain level reassessed. Patient is alert, oriented x 3, equal unlabored respirations, skin warm/dry/pink. 23:50 Reassessment: Patient appears in no apparent distress at this time. Patient and/or fu family updated on plan of care and expected duration. Pain level reassessed. Patient is alert, oriented x 3, equal unlabored respirations, skin warm/dry/pink. Patient states feeling better. Vital Signs: 19:53 BP 83 / 56; Pulse 82; Resp 16; Temp 98.4(A); Pulse Ox 93% on R/A; Weight 90.72 kg (R); jb4 Height 5 ft. 11 in. (180.34 cm) (R); Pain 0/10; 20:00 BP 63 / 53; Pulse 69; Resp 16; Temp 97.6; Pulse Ox 96% on R/A; Pain 0/10; fu 20:15 BP 77 / 56; Pulse 72; Resp 16; Pulse Ox 97% on R/A; Pain 0/10; fu 20:30 BP 102 / 73; Pulse 72; Resp 16; Pulse Ox 99% on NC; Pain 0/10; fu 21:30 BP 134 / 84; Pulse 64; Resp 21; Pulse Ox 100% on R/A; Pain 0/10; fu 22:00 BP 121 / 84; Pulse 64; Resp 17; Pulse Ox 100% on R/A; Pain 0/10; fu 23:00 BP 129 / 88; Pulse 65; Resp 15; Pulse Ox 100% on R/A; Pain 0/10; fu 12/02 00:00 BP 126 / 82; Pulse 60; Resp 12; Pulse Ox 100% on R/A; Pain 0/10; fu 12/01 19:53 Body Mass Index 27.89 (90.72 kg, 180.34 cm) jb4 ED Course: 12/01 19:46 Patient arrived in ED. cf2 19:52 German Akbar MD is Attending Physician. 7 19:58 Chato Mckeon, RN is Primary Nurse. fu 19:58 Triage completed. jb4 19:59 Arm band placed on right wrist. jb4 20:35 No provider procedures requiring assistance completed. Inserted saline lock: 18 gauge fu in right forearm, using aseptic technique. Blood collected. 20:40 Salicylate Sent. fu 20:40 Acetaminophen Sent. fu 20:40 ETOH Level Sent. fu 20:40 Basic Metabolic Panel Sent. fu 20:40 CBC with Diff Sent. fu 20:40 LFT's Sent. fu 20:40 Magnesium Sent. fu 20:40 NT PRO-BNP Sent. fu 20:40 PT-INR Sent. fu 20:54 XRAY Chest (1 view) In Process Unspecified. EDMS 21:01 CT Head C Spine In Process Unspecified. EDMS 21:11 AMMONIA Sent. fu 22:00 Patient has correct armband on for positive identification. Bed in low position. Call fu light in reach. Side rails up X 1. potline monitor on. Pulse ox on. NIBP on. 12/02 00:45 IV discontinued, bleeding controlled, Pressure dressing applied. fu Administered Medications: 12/01 21:02 Drug: NS 0.9% 1000 ml Route: IV; Rate: 1 bolus; Site: left antecubital; fu 22:45 Follow up: Response: No adverse reaction fu 22:48 Drug: NS 0.9% 1000 ml Route: IV; Rate: 1 bolus; Site: right forearm; fu 12/02 00:00 Follow up: Response: No adverse reaction fu Outcome: 00:41 Discharge ordered by . mh7 00:45 Discharged to home ambulatory, with family. fu 00:45 Discharge instructions given to patient, family, Instructed on discharge instructions, follow up and referral plans. Demonstrated understanding of instructions, follow-up care. 00:45 Condition: good fu 00:49 Patient left the ED. fu Signatures: Dispatcher [employer] EDMS Anthony Lujan RN RN jb4 Chato Mckeon RN RN Mally Hinojosa 2 German Akbar MD MD [email or web address] Corrections: (The following items were deleted from the chart) 04:53 04:52 Response: No adverse reaction fu fu 04:56 00:40 Condition: good fu fu
[2019-12-03 00:58] VITALS: BP 83/56; TEMP 98.4; O2SAT 93
--- NOTE | 2019-12-03 07:04 | EKG ---
Test Date: 2019-12-02 Test Time: 20:27:23 Clinic Scheduler: [place] MEASUREMENT RESULTS: Intervals: Rate: 71 OR: 120 QRSD: 74 QT: 404 QTc: 439 [place]: P: 15 OR: 120 QRS: 26 T: 43 INTERPRETIVE STATEMENTS: Normal sinus rhythm Normal ECG No previous ECG available for comparison Electronically Signed On 12-03-19 07:03:30 CDT by Ajith Horner
== END 2019-12-03 00:49 | disposition home or self-care (01) ==
LOC: ER 19:45
DX: F15.10 Other stimulant abuse, uncomplicated (principal); F12.90 Cannabis use, unspecified, uncomplicated; R55 Syncope and collapse
CPT/HCPCS: 93005; 85025; 80048; 36415; 80320; 82140; 83735; 80329 ×2; 85610; 80076; 80307 ×8; 81003; 84484 ×2; 83880; 70450; 72125; 71045; 99285; J7030 ×2

== ENCOUNTER 2020-03-31 06:25 | Emergency (ER) | payer OTHER, SELFPAY ==
--- OUTSIDE RECORDS SUMMARY | 2020-03-31 06:27 | XMS REPORT | Continuity of Care Document ---
:1960 Author Organization [facility] t Address [address] [place] [address] Care Team Providers Name Role Phone Unavailable Unavailable Unavailable Problems This patient has no known problems. Allergies, Adverse Reactions, Alerts This patient has no known allergies or adverse reactions. Medications This patient has no known medications. Procedures This patient has no known procedures. Results This patient has no known results.
--- NOTE | 2020-03-31 06:53 | ER ---
Nurse's Notes [facility] Name: Wolfgang Ross Age: 59 yrs Sex: Male : 1960 Arrival Date: 03/31/2020 Time: 06:26 Bed 5 Private MD: Diagnosis: Muscle spasm of back Presentation: 03/31 06:34 Chief complaint: Patient states: upper back pain that radiates into right shoulder that em started last Saturday. Coronavirus screen: Client denies travel out of the [place] in the last 14 days. Ebola Screen: Patient negative for fever greater than or equal to 101.5 degrees Fahrenheit, and additional compatible Ebola Virus Disease symptoms Patient denies exposure to infectious person. Patient denies travel to an Ebola-affected area in the 21 days before illness onset. No symptoms or risks identified at this time. Initial Sepsis Screen: Does the patient meet any 2 criteria? No. Patient's initial sepsis screen is negative. Does the patient have a suspected source of infection? No. Patient's initial sepsis screen is negative. Risk Assessment: Do you want to hurt yourself or someone else? Patient reports no desire to harm self or others. Onset of symptoms was March 31, 2020. 06:34 Method Of Arrival: Ambulatory em 06:34 Acuity: BREANNA 4 em Historical: - Allergies: 06:36 No Known Allergies; em - PMHx: 06:36 Hernia; em - PSHx: 06:36 None; em - Immunization history:: Adult Immunizations up to date. - Social history:: Smoking status: Patient reports the use of cigarette tobacco products, denies chronic smoking, but will smoke occasionally, Patient/guardian denies using alcohol, street drugs, The patient lives with family. - Family history:: not pertinent. Screenin:45 Abuse screen: Denies threats or abuse. Nutritional screening: No deficits noted. ea Tuberculosis screening: No symptoms or risk factors identified. Fall Risk None identified. Assessment: 06:57 Reassessment: Patient and/or family updated on plan of care and expected duration. Pain ea level reassessed. Patient is alert, oriented x 3, equal unlabored respirations, skin warm/dry/pink. Discharge instructions given to patient verbalized the understanding of instruction. Pt left ED ambulatory tolerating well. Vital Signs: 06:34 BP 147 / 89; Pulse 78; Resp 18; Temp 97.0; Pulse Ox 100% on R/A; Weight 84.82 kg; em Height 5 ft. 7 in. (170.18 cm); Pain 7/10; 06:34 Body Mass Index 29.29 (84.82 kg, 170.18 cm) em ED Course: 06:26 Patient arrived in ED. ag3 06:36 Triage completed. em 06:36 Arm band placed on. em 06:45 Jan Goldstein MD is Attending Physician. [facility] 06:45 Patient has correct armband on for positive identification. Bed in low position. Call ea light in reach. 06:59 No provider procedures requiring assistance completed. Patient did not have IV access ea during this emergency room visit. Administered Medications: No medications were administered Outcome: 06:52 Discharge ordered by . [facility] 06:59 Discharged to home ambulatory. ea 06:59 Condition: stable 06:59 Discharge instructions given to patient, Instructed on discharge instructions, follow up and referral plans. medication usage, Demonstrated understanding of instructions, follow-up care, medications, Prescriptions given X 2. 06:59 Patient left the ED. ea Signatures: Wesley Rob, RN RN Jocelyn Pemberton RN RN Jan Chaidez MD MD [facility] Priyanka Bell 3
--- NOTE | 2020-03-31 06:53 | EDPHYS ---
Physician Documentation [facility] Name: Wolfgang Ross Age: 59 yrs Sex: Male : 1960 Arrival Date: 03/31/2020 Time: 06:26 Bed 5 Private MD: ED Physician Jan Goldstein HPI: 03/31 06:50 This 59 yrs old Black Male presents to ER via Ambulatory with complaints of Back Pain. ma2 06:50 The patient presents with pain that is acute. Associated signs and symptoms: Pertinent ma2 negatives: abdominal pain, chest pain, constipation, dysuria, fever, headache, hematuria, incontinence, nausea, numbness, tingling, urinary retention, vomiting, weakness. The problem was sustained when lifting heavy object. Severity of symptoms: At their worst the symptoms were moderate, in the emergency department the symptoms are unchanged. Historical: - Allergies: 06:36 No Known Allergies; em - PMHx: 06:36 Hernia; em - PSHx: 06:36 None; em - Immunization history:: Adult Immunizations up to date. - Social history:: Smoking status: Patient reports the use of cigarette tobacco products, denies chronic smoking, but will smoke occasionally, Patient/guardian denies using alcohol, street drugs, The patient lives with family. - Family history:: not pertinent. ROS: 06:50 Constitutional: Negative for fever, chills, and weight loss, Cardiovascular: Negative ma2 for chest pain, palpitations, and edema, Respiratory: Negative for shortness of breath, cough, wheezing, and pleuritic chest pain. 06:50 All other systems are negative. Exam: 06:50 Constitutional: This is a well developed, well nourished patient who is awake, alert, ma2 and in no acute distress. Chest/axilla: Normal chest wall appearance and motion. Nontender with no deformity. No lesions are appreciated. Cardiovascular: Regular rate and rhythm with a normal S1 and S2. No gallops, murmurs, or rubs. Normal PMI, no JVD. No pulse deficits. Respiratory: Lungs have equal breath sounds bilaterally, clear to auscultation and percussion. No rales, rhonchi or wheezes noted. No increased work of breathing, no retractions or nasal flaring. Abdomen/GI: Soft, non-tender, with normal bowel sounds. No distension or tympany. No guarding or rebound. No evidence of tenderness throughout. MS/ Extremity: Pulses equal, no cyanosis. Neurovascular intact. Full, normal range of motion. Neuro: Awake and alert, GCS 15, oriented to person, place, time, and situation. Cranial nerves II-XII grossly intact. Motor strength 5/5 in all extremities. Sensory grossly intact. Cerebellar exam normal. Normal gait. 06:50 Back: pain, that is moderate, ROM is normal, normal spinal alignment noted, CVA tenderness, is absent, vertebral tenderness, is not appreciated, muscle spasm, is appreciated in the right scapular area. Vital Signs: 06:34 BP 147 / 89; Pulse 78; Resp 18; Temp 97.0; Pulse Ox 100% on R/A; Weight 84.82 kg; em Height 5 ft. 7 in. (170.18 cm); Pain 7/10; 06:34 Body Mass Index 29.29 (84.82 kg, 170.18 cm) em MDM: 06:50 Patient medically screened. ma2 06:50 Differential diagnosis: chronic back pain, Fatigue Ligament Injury sprain. Data ma2 reviewed: vital signs, nurses notes. Counseling: I had a detailed discussion with the patient and/or guardian regarding: the historical points, exam findings, and any diagnostic results supporting the discharge/admit diagnosis, the presence of at least one elevated blood pressure reading (>120/80) during this emergency department visit, the need for outpatient follow up. Administered Medications: No medications were administered Disposition: 03/31/20 06:52 Discharged to Home. Impression: Muscle spasm of back. - Condition is Stable. - Discharge Instructions: Back Injury Prevention, [id number], Heat Therapy, Form - Excuse from Work, School, or Physical Activity. - Prescriptions for Cyclobenzaprine 10 mg Oral Tablet - take 1 tablet by ORAL route every 8 hours As needed; 30 tablet. Diclofenac Sodium 75 mg Oral Tablet Sustained Release - take 1 tablet by ORAL route 2 times per day; 30 tablet. - Work release form, Medication Reconciliation Form, Thank You Letter, Antibiotic Education, Prescription Opioid Use form. - Follow up: Private Physician; When: Tomorrow; Reason: If symptoms return, Continuance of care. Signatures: Wesley Rob RN Jocelyn Alonso, RN Jan Nava ea, MD MD ma2 Corrections: (The following items were deleted from the chart) 06:59 06:52 03/31/2020 06:52 Discharged to Home. Impression: Muscle spasm of back. Condition ea is Stable. Forms are Medication Reconciliation Form, Thank You Letter, Antibiotic Education, Prescription Opioid Use. Follow up: Private Physician; When: Tomorrow; Reason: If symptoms return, Continuance of care. ma2
[2020-03-31 07:03] VITALS: BP 147/89; TEMP 97; O2SAT 100
== END 2020-03-31 06:59 | disposition home or self-care (01) ==
LOC: ER 06:25
DX: M62.830 Muscle spasm of back (principal); F17.210 Nicotine dependence, cigarettes, uncomplicated
CPT/HCPCS: 99282

== ENCOUNTER 2020-06-08 15:31 | Emergency (ER) | payer SELFPAY ==
--- NOTE | 2020-06-08 20:03 | ER ---
Nurse's Notes [facility] Name: Wolfgang Ross Age: 59 yrs Sex: Male : 1960 Arrival Date: 06/08/2020 Time: 15:31 Bed Waiting Private MD: Diagnosis: Presentation: 06/08 15:41 Chief complaint: Patient states: R sided inguinal hernia pain for 4 days. States he has ll1 had N/V since last week. No fever. No dysuria. Trying to get into indigent care in [place] to take care of this problem. Coronavirus screen: Client denies travel out of the [place] in the last 14 days. At this time, the client does not indicate any symptoms associated with coronavirus-19. Ebola Screen: Patient denies travel to an Ebola-affected area in the 21 days before illness onset. Initial Sepsis Screen: Does the patient meet any 2 criteria? No. Patient's initial sepsis screen is negative. Does the patient have a suspected source of infection? Yes: Other: hernia. Risk Assessment: Do you want to hurt yourself or someone else? Patient reports no desire to harm self or others. Onset of symptoms was May 05, 2020. 15:41 Method Of Arrival: Ambulatory ll1 15:41 Acuity: BREANNA 3 ll1 Historical: - Allergies: 15:43 No Known Allergies; ll1 - PMHx: 15:43 Hernia; ll1 - PSHx: 15:43 None; ll1 - Immunization history:: Flu vaccine is not up to date. - Social history:: Smoking status: Patient reports the use of cigarette tobacco products, smokes one-half pack cigarettes per day. Assessment: 19:47 Reassessment: called from the lobby, no answer. ca1 Vital Signs: 15:41 BP 168 / 97; Pulse 73; Resp 17; Temp 97.3; Pulse Ox 100% ; Weight 86.64 kg; Height 5 ll1 ft. 11 in. (180.34 cm); Pain 9/10; 15:41 Body Mass Index 26.64 (86.64 kg, 180.34 cm) ll1 ED Course: 15:31 Patient arrived in ED. am2 15:42 Triage completed. ll1 15:43 Arm band placed on. ll1 19:42 Néstor Contreras MD is Attending Physician. eryn Administered Medications: No medications were administered Outcome: 20:02 Patient left the ED. iw Signatures: Néstor Contreras MD MD cha Williams, Irene, RN RN Sherry Mukherjee Cheryl RN RN Jose Manuel Bullock RN RN ll1 Corrections: (The following items were deleted from the chart) 15:43 15:41 Chief complaint: Patient states: R sided inguinal hernia pain for 4 days. Trying ll1 to get into indigent care in [place] to take care of this problem. ll1
[2020-06-08 20:26] VITALS: BP 168/97; TEMP 97.3; O2SAT 100
== END 2020-06-08 20:02 | disposition left against medical advice (07) ==
LOC: ER 15:31
DX: Z02.9 Encounter for administrative examinations, unspecified (principal)
CPT/HCPCS: 99281